=== PATIENT | female | born 1965 | race Caucasian/White ===

== ENCOUNTER 2019-06-20 11:37 | Inpatient (IN) ==
[2019-06-20] MEDS: ZOFRAN ODT PO ONE (12:14)
[2019-06-20] MEDS ORDERED: ZOFRAN ODT ONE (12:17)
[2019-06-20] MEDS ORDERED: PHENERGAN IM ONE (12:25)
[2019-06-20] MEDS ORDERED: ZOFRAN IV ONE (12:40)
[2019-06-20] MEDS ORDERED: NS 1,000 ML IV ONE ×3 (12:42→14:59)
[2019-06-20 12:50] LABS: BASO# 0.03 X1000 (0.0-0.2); BASO% 0.2 % (0.0-0.8); EOS# 0.01 X1000 (0.0-0.7); EOS% 0.1 % (0.0-10.0); HEMATOCRIT 45.8 % (37.0-47.0); HEMOGLOBIN 16.3 g/dL (12.0-16.0); IMM GRAN# 0.07 X1000 (0.0-0.04); IMM GRAN% 0.4 % (0.0-0.5); LYMPH# 1.49 X1000 (1.2-3.4); LYMPH% 9.2 % (20.5-51.1); MCH 31.1 PG (27-31); MCHC 35.6 g/dL (33-37); MCV 87.4 FL (81-99); MONO# 0.88 X1000 (0.11-0.59); MONO% 5.4 % (1.7-9.3); MPV 11.4 FL (7.4-10.4); NEUT# 13.71 X1000 (1.4-6.5); NEUT% 84.7 % (42.2-75.2); PLT 209 X1000 (130-400); RBC 5.24 XMIL (4.2-5.4); RDW 12.6 % (11.5-14.5); WBC 16.19 X1000 (4.8-10.8)
--- NOTE | 2019-06-20 12:50 | EKG Report ---
Test Performed on : 06/20/2019 12:31:16 PM Test Reason : emboli Blood Pressure : / mmHG Vent. Rate : 118 BPM Atrial Rate : 119 BPM P-R Int : 112 ms QRS Dur : 078 ms QT Int : 434 ms P-R-T Axes : 060 076 076 degrees QTc Int : [address] & Marked T wave abnormality, consider inferior ischemia Prolonged QT Abnormal ECG When compared with ECG of 13-FEB-2018 15:47, Vent. rate has increased BY [address] no longer elevated in Inferior leads ST now depressed in Anterior leads T wave inversion now evident in Inferior leads T wave inversion now evident in Anterolateral leads Unconfirmed Result
[2019-06-20 13:27] LABS: AMYLASE 39 U/L (20-200); CK PROFILE 75 U/L (24-173)
--- NOTE | 2019-06-20 13:31 | Diag Imaging Result Doc PS360 ---
CHEST-2 VIEWS - 06/20/2019 INDICATION: cough COMPARISON: 02/13/2018 FINDINGS: The lungs are normally expanded and clear. Heart size and mediastinal contours are normal. No pneumothorax or pleural effusion. IMPRESSION: Negative exam. Electronically signed by Landry Chow 06/20/2019 1:29 PM
--- NOTE | 2019-06-20 13:33 | Diag Imaging Result Doc PS360 ---
ABDOMEN FLAT/UPRIGHT - 06/20/2019 INDICATION: pain COMPARISON: 02/12/2018 FINDINGS: There are surgical clips in the right midabdomen. There is a nonobstructive bowel gas pattern. No free air or abnormal calcifications. IMPRESSION: No acute disease. Electronically signed by Landry Chow 06/20/2019 1:30 PM
[2019-06-20 13:44] LABS: ALBUMIN 4.8 g/dL (3.5-5.0); CALCIUM 9.6 mg/dL (8.8-10.2); POTASSIUM 2.7 mmol/L (3.5-5.1); TOTAL BILIRUBIN 5.1 mg/dL (0.20-1.00); TOTAL PROTEIN 7.7 g/dL (6.3-8.3)
[2019-06-20 14:07] LABS: INR 1.03
[2019-06-20 14:08] LABS: PTT 32.3 Seconds (22.3-41.8)
[2019-06-20 14:11] LABS: BE 8.7 mmoll (-3.0-3.0); BLOOD TYPE ARTERIAL; HCO3-(ACT) 31.6 mmoll (20.0-26.0); METHB 1.5 % (0.0-1.5); O2(CT) 20.2 mL/dL (15.0-23.0); O2HB 94.1 % (95.0-99.0); PCO2(98.6) 25 mmHg (35-45); PO2(98.6) 100 mmHg (60-100); SAMPLE BLOOD; SAO2 98.9 % (95.0-100.0); THB 15.2 g/dL (11.5-17.4)
[2019-06-20 14:15] LABS: MODALITY ROOM AIR
[2019-06-20 14:16] LABS: ALLEN TEST YES; pH(98.6) 7.66 (7.35-7.45)
[2019-06-20] MEDS ORDERED: COMPAZINE IV ONE (14:28)
[2019-06-20 14:44] LABS: URINE SOURCE CLEAN CATCH
[2019-06-20 14:52] LABS: BILIRUBIN URINE SMALL (NEGATIVE); BLOOD URINE SMALL (NEGATIVE); COLOR YELLOW; GLUCOSE URINE NEGATIVE (NEGATIVE); KETONE URINE TRACE mg/dL (NEGATIVE); LEUKOCYTES URINE NEGATIVE (NEGATIVE); NITRITE URINE NEGATIVE (NEGATIVE); PROTEIN URINE 70 mg/dL (NEGATIVE); SP GRAVITY URINE 1.026; TURBIDITY URINE HAZY (CLEAR); UROBILINOGEN URINE 4 mg/dL (NORMAL)
[2019-06-20 14:53] LABS: UR EPITHELIAL CELLS >10 /HPF (<10); URINE BACTERIA 1+ /HPF; URINE RBC <10 /HPF (<10); URINE WBC <10 /HPF (<10)
[2019-06-20 15:57] LABS: UR AMPHETAMINES QUAL NONE DETECTED (NONE DETECT); UR BARBITUATES QUAL NONE DETECTED (NONE DETECT); UR BENZODIAZEPIN QUAL PRESUMPTIVE POSITIVE (NONE DETECT)
[2019-06-20 15:58] LABS: UR CANNABINOIDS QUAL PRESUMPTIVE POSITIVE (NONE DETECT); UR COCAINE QUAL NONE DETECTED (NONE DETECT); UR METHADONE QUAL NONE DETECTED (NONE DETECT); UR METHAMPHETAMINE QUAL NONE DETECTED (NONE DETECT); UR OPIATES QUAL PRESUMPTIVE POSITIVE (NONE DETECT); UR OXYCODONE QUAL NONE DETECTED (NONE DETECT); UR PCP QUAL NONE DETECTED (NONE DETECT); UR PROPOXYPHENE QUAL NONE DETECTED (NONE DETECT); UR TCA QUAL PRESUMPTIVE POSITIVE (NONE DETECT)
[2019-06-20] MEDS ORDERED: ZOSYN 3.375 GM in NS 50 ML IV ONE (16:15)
[2019-06-20] MEDS ORDERED: DEMEROL IV ONE (16:17)
--- NOTE | 2019-06-20 17:18 | PROVIDER DOCUMENTATION ---
This chart was entered by Penelope Alexander Scribe, acting as scribe for Santy Baron MD. HPI-General Adult - General Chief Complaint: Fall Stated Complaint: N / V / FALL Time Seen by Provider: 06/20/19 12:00 Source: patient Allergies/Adverse Reactions: Patient Allergies Allergy/AdvReac Type Severity Reaction Status Date / Time iodine Allergy RASH Verified 02/17/18 08:33 shellfish derived Allergy ANAPHYLAXIS Verified 02/17/18 08:33 aspirin AdvReac Unknown Verified 02/17/18 08:33 Home Medications: Home Medication List Medication Instructions Recorded Confirmed Last Taken Type Ondansetron Odt [Zofran Odt] 8 mg PO Q8H PRN PRN #20 tab 05/27/17 02/17/18 1 Week Ago Rx ~02/10/18 Paroxetine HCl 40 mg PO DAILY 05/27/17 02/17/18 02/16/18 16:00 History Trazodone HCl 200 mg PO HS 05/27/17 02/17/18 02/16/18 21:00 History Buspirone [Buspar] 15 mg PO DAILY 06/26/17 02/17/18 02/16/18 16:00 History Lipase/Protease/Amylase [Pancreaze 2 cap PO TID 02/13/18 02/17/18 02/16/18 16:[address] Tang,200 Unit Cap] Polyethylene Glycol 3350 [Miralax] 17 gm PO DAILY 02/13/18 02/17/18 1 Week Ago History ~02/10/18 Docusate Sodium [Colace] 100 mg PO BID #20 capsule 02/17/18 Unknown Rx Hydrocodone/Acetaminophen [[place] 1 each PO Q4H PRN PRN #20 tablet 02/17/18 Unknown Rx 10-325 Tablet] Multivitamin/Iron/Folic Acid 1 each PO DAILY #100 tablet 02/17/18 Unknown Rx [Multivitamin with Iron Tablet] Ondansetron [Zofran] 4 mg PO Q4H PRN PRN #20 tablet 02/17/18 Unknown Rx - History of Present Illness -Gen Adult Nature of Presenting Problems: 53 y/o female presents to ED with N/V onset this morning. Pt reports she had an episode of syncope 3 days ago and she fell down a flight of stairs. Pt states she has experienced low back pain, rib pain, and L ankle pain since the fall. Pt is alert and oriented. Location of Pain/Injury: reports: back, lower extremity, other (ribs) Pain Radiation: reports: no radiation Quality of Pain: reports: aching Severity: reports: mild Onset/Duration: reports: 3 days ago, this morning Timing: reports: still present Context/Activities at Onset: reports: other (fall) Modifying Factors: worse with: movement, palpation Associated Symptoms: reports: back/neck pain, joint pain (L ankle), nausea, syncope, vomiting, other (rib pain) Similar Symptoms Previously?: No Recently seen or treated by another doctor?: No Review of Systems - Adult - REVIEW OF SYSTEMS - ADULT Constitutional: denies: chills, fever Eyes: reports: no symptoms reported Ears, Nose, Mouth & Throat: reports: no symptoms reported Cardiovascular: denies: chest pain, palpitations Respiratory: denies: cough, shortness of breath Gastrointestinal: reports: nausea, vomiting. denies: abdominal pain, diarrhea Genitourinary: reports: no symptoms reported Musculoskeletal: reports: back pain (low back), joint pain (L ankle), other (rib pain) Integumentary: reports: no symptoms reported Neurological: reports: syncope. denies: dizziness/vertigo, seizure Psychiatric: reports: no symptoms reported Endocrine: reports: no symptoms reported Hematologic/Lymphatic: reports: no symptoms reported Allergic/Immunologic: reports: no symptoms reported All Other Systems: Reviewed and Negative Past History - Adult - PAST MEDICAL HISTORY-ADULT Review of Records: reports: Old Records Reviewed, Nursing Assessment Review, Medications Reviewed Major Childhood Illnesses: reports: denies history Cardiovascular: reports: HTN Respiratory: reports: asthma Gastrointestinal: reports: pancreatitis, other (intractable abd pain) Obstetrical/Gynecological: reports: denies history Genitourinary: reports: denies history Musculoskeletal: reports: denies history Neurological: reports: denies history Psychiatric: reports: anxiety, depression Endocrine/Immune: reports: denies history Other Conditions: reports: denies history - PRIOR SURGERIES/PROCEDURES Surgical/Procedure History: reports: appendectomy, cholecystectomy, hysterectomy , other (brain surgery, pancreas, ectopic ) - IMMUNIZATION STATUS Childhood Immunizations: See Nurse Assessment Flu Vaccine: See Nurse Assessment - FAMILY HISTORY Family History: reviewed, not pertinent - SOCIAL HISTORY Smoking: less than 1 pack/day Provider spent 3-5 mins advising pt. on dangers of tobacco.: Discussed manners to quit use, and f/u contacts for add'l counseling. Substance Use: marijuana Alcohol Use Frequency: occasionally Living Situation: family Physical Exam-General - PHYSICAL EXAM-ADULT Initial Vital Signs Reviewed: Yes - CONSTITUTIONAL General Appearance: alert, mild distress - EYES Eyes: PERRL/EOMI, pink conjunctivae - HEAD, EARS, NOSE, MOUTH & THROAT HENMT: normocephalic/atraumatic, moist mucous membranes, normal ENT inspection - NECK Neck: non-tender, full range of motion - RESPIRATORY Respiratory: chest non-tender, lungs clear, normal breath sounds - CARDIOVASCULAR Cardiovascular: normal peripheral pulses, regular rate, rhythm - GASTROINTESTINAL (ABDOMEN) Abdominal Exam: normal bowel sounds, non tender, soft - MUSCULOSKELETAL Back Exam: normal inspection, no CVA tenderness, no vertebral tenderness, other (paraspinous muscle tenderness) Extremity: normal range of motion, non-tender, normal gait - SKIN Integumentary: normal color, warm/dry, ecchymosis (L lateral lower leg) - NEUROLOGIC Neurologic: international marketing intern II-XII nml as tested, grossly normal, no motor/sensory deficits - PSYCHIATRIC Psych/Mental Status: normal mood/affect, normal thought content, normal thought process, oriented x 3 Progress - PLAN OF CARE/RESULTS Progress/Plan/Lab Results: Vital Signs - 8 hr 06/20/19 11:41 Temperature 98 F Pulse Rate 130 H Respiratory Rate 20 Blood Pressure 135/95 O2 Sat by Pulse Oximetry 99 Orders Category Date Time Status ABDOMEN FLAT/UPRIGHT [RAD] Stat Exams 06/20/19 12:18 Ordered CHEST-2 VIEWS [RAD] Stat Exams 06/20/19 12:18 Ordered AMYLASE [CHEM] Stat Lab 06/20/19 12:16 Ordered CBC WITH DIFF [HEME] Stat Lab 06/20/19 12:15 Ordered CK PROFILE [SP CHEM] Stat Lab 06/20/19 12:16 Ordered COMPREHENSIVE METABOLIC PANEL [CHEM] Stat Lab 06/20/19 12:15 Ordered LIPASE [CHEM] Stat Lab 06/20/19 12:16 Uncollected TROPONIN T Stat Lab 06/20/19 12:16 Ordered Ondansetron Odt [Zofran Odt] Med 06/20/19 12:17 Discontinued 4 mg .ROUTE .STK-MED ONE Ondansetron Odt [Zofran Odt] Med 06/20/19 12:14 Discontinued 8 mg PO NOW ONE EKG [EKG] Routine Ther 06/20/19 12:17 Ordered Result Diagrams: 06/20/19 12:35 06/20/19 12:35 - EKG 1 Time of EKG reading by physician:: 12:31 EKG Read and Signed by:: Santy Baron EKG Interpretation (*Must complete 3 of following elements*): Abnormal Rate: 118 Rhythm: Sinus tach [place]: normal QRS: normal ND Interval: prolonged ST Wave: non-specific ST changes (consider inferior ischemia) - XRAY 1 XRAY Study: Abdomen Impression: See EMR Report ([facility] - [address], [place] [address] [facility] - [address] [place] [address] Department of Imaging Patient: ALEXANDRE MCLEOD Date: 06/20/19MR#: [id number] : 1965ADM Status: [facility]#: [id number] Age/Sex: 53/FRoom/Bed: Loc: P.ED Ordering Physician: Santy Baron MD Family Physician: None,PCP Reason for Procedure: pain Signed ABDOMEN FLAT/UPRIGHT - 06/20/2019 INDICATION: pain COMPARISON: 02/12/2018 FINDINGS: There are surgical clips in the right midabdomen. There is a nonobstructive bowel gas pattern. No free air or abnormal calcifications. IMPRESSION: No acute disease. Electronically signed by Landry Chow 06/20/2019 1:30 PM 06/20/19 1330 Interpreting Physician: Landry Chow MD Dictated Date/Time: 06/20/19 1330 cc: Santy Baron MD; None,PCP) 2 XRAY Study: Chest Impression: See EMR Report ([facility] - [address], [address], [place] [address] [address] [id number] [place] [address] Department of Imaging Patient: ALEXANDRE MCLEOD Date: 06/20/19MR#: [id number] : 1965ADM Status: REG ERAcct#: [id number] Age/Sex: 53/FRoom/Bed: Loc: P.ED Ordering Physician: Santy Baron MD Family Physician: None,PCP Reason for Procedure: cough ____ Signed CHEST-2 VIEWS - 06/20/2019 INDICATION: cough COMPARISON: 02/13/2018 FINDINGS: The lungs are normally expanded and clear. Heart size and mediastinal contours are normal. No pneumothorax or pleural effusion. IMPRESSION: Negative exam. Electronically signed by Landry Chow 06/20/2019 1:29 PM 06/20/19 1329 Interpreting Physician: Landry Chow MD Dictated Date/Time: 06/20/19 1328 cc: Santy Baron MD; None,PCP) - CT/MRI 1 CT Study: Abdomen, Pelvis Impression: See EMR Report ([facility] - [address], [address], [place] [address] [place] [id number] Department of Imaging Patient: ALEXANDRE MCLEOD Date: 06/20/19MR#: [id number] : 1965ADM Status: REG ERAcct#: [id number] Age/Sex: 53/FRoom/Bed: Loc: P.ED Ordering Physician: Santy Baron MD Family Physician: None,PCP Reason for Procedure: pain Signed CT ABDOMEN/PELVIS W/O CONTRAST - 06/20/2019 INDICATION: pain COMPARISON: 09/18/2017 FINDINGS: The lung bases are clear and the heart size is normal. There is severe diffuse fatty change of the liver. There is significant chronic pancreatitis with severe calcification of the pancreas. There is some slight hazy peripancreatic edema. Other abdominal organs appear normal. No drainable fluid collections. No bowel obstruction or inflammation. Uterus is absent. Urinary bladder and rectum are normal. There are moderate degenerative changes of the spine. No acute or suspicious bony lesion. IMPRESSION: 1. Probable acute on chronic pancreatitis. 2. Severe hepatic steatosis. Worsened since prior. This exam was performed using automated exposure control, adjustment of mA or kV according to patient size, and/or use of iterative reconstruction technique Electronically signed by Landry Chow 06/20/2019 5:26 PM 06/20/19 1726 Interpreting Physician: Landry Chow MD Dictated Date/Time: 06/20/19 172 cc: Santy Baron MD; None,PCP) - CONSULTS/PCP/HOSPITALIST Notification #1 *Consult/PCP/Hospitalist*: Dr. Lieberman Time Discussed: 16:02 Reason/Comments: pancreatitis Consult Disposition: Admit Departure - Departure Date of Disposition Decision: 06/20/19 Time of Disposition Decision: 17:39 DIAGNOSIS: Tobacco use Chronic pancreatitis Qualifiers: Pancreatitis type: unspecified pancreatitis type Qualified Code(s): K86.1 - Other chronic pancreatitis Disposition: ADMITTED INPATIENT 09 Certified Medical Emergency: Emergent Condition: Stable Referrals and Follow-Ups: None,PCP [Primary Care Provider] - Discharge Education: Steps to Quit Smoking, [id number] - Critical Care Note This patient required my direct & personal management of CC.: No Attestation - Physician/ DON Attestation Patient care was provided by Advanced Practice Provider:: No The physician spent face to face time with patient:: Yes Advanced Practice Provider documentation review:: Supervising physician onsite and consulted in the evaluation and care of this patient. The physician did have a face to face encounter with the patient. This chart was documented by the indicated scribe, (Penelope Alexander, Tor) and accurately reflects the services I performed and decisions made by me, Santy Baron MD, as attested by the provider's signature.
--- NOTE | 2019-06-20 17:28 | Diag Imaging Result Doc PS360 ---
CT ABDOMEN/PELVIS W/O CONTRAST - 06/20/2019 INDICATION: pain COMPARISON: 09/18/2017 FINDINGS: The lung bases are clear and the heart size is normal. There is severe diffuse fatty change of the liver. There is significant chronic pancreatitis with severe calcification of the pancreas. There is some slight hazy peripancreatic edema. Other abdominal organs appear normal. No drainable fluid collections. No bowel obstruction or inflammation. Uterus is absent. Urinary bladder and rectum are normal. There are moderate degenerative changes of the spine. No acute or suspicious bony lesion. IMPRESSION: 1. Probable acute on chronic pancreatitis. 2. Severe hepatic steatosis. Worsened since prior. This exam was performed using automated exposure control, adjustment of mA or kV according to patient size, and/or use of iterative reconstruction technique Electronically signed by Landry Chow 06/20/2019 5:26 PM
[2019-06-20] MEDS ORDERED: NS + KCL 20 MEQ 1,000 ML IV ONE (18:40)
--- NOTE | 2019-06-20 18:56 | HISTORY AND PHYSICAL ---
CHIEF COMPLAINT: Abdominal pain. HISTORY OF PRESENT ILLNESS: The patient is a 53-year-old female who has a known history of chronic pancreatitis. The patient notes that she was in the hospital in [place] 4 months ago with pancreatitis at that time as well. She does not have a gallbladder. States she has not been drinking alcohol; in fact, notes that she avoids any alcohol-containing products, including mouthwashes. Notes that she has not been eating well. She has had increased abdominal pain. States this is very similar to her previous episodes of pancreatitis. Of note, she was told when she was in the hospital this last time that she was starting to have some liver issues as well as kidney issues and should, according to her, consider hospice care. ALLERGIES: Iodine, shellfish, and aspirin. MEDICATIONS: Zofran, Paxil, trazodone, and BuSpar. REVIEW OF SYSTEMS: The patient notes she has nausea, vomiting, abdominal pain, epigastric abdominal pain, low back pain, left ankle pain, and chronic rib pain. Denies any fevers or chills. Does have a mild cough. Denies chest pain or palpitation. Denies any dysuria, frequency, constipation, melena, or hematochezia. Denies diarrhea or dysuria. Does not check her weight on any regular basis. Does check her blood pressure at home; notes that she recently checked it and it was normal although could not specify what normal is. PAST MEDICAL HISTORY: Hypertension, asthma, and pancreatitis chronic. SURGICAL HISTORY: She has had an appendectomy, cholecystectomy, and hysterectomy. She has had brain surgery, she had surgery on her pancreas assuming for a cyst, and some ectopic . FAMILY HISTORY: Noncontributory. SOCIAL HISTORY: Continues to smoke a pack a day. Does use marijuana. Denies alcohol. PHYSICAL EXAMINATION: VITAL SIGNS: Reviewed. Temperature 98 degrees, pulse 130, respiratory 20, BP 135/95 to 169/106. GENERAL: The patient is awake and alert. She is lying in the bed. She is in mild distress due to pain. She is in no respiratory distress. HEENT: Normocephalic. NECK: Supple. CARDIOVASCULAR: Regular rate. CHEST: Clear and nonlabored. No wheezing. ABDOMEN: Soft. Diffusely tender in the upper quadrants, mainly in the epigastric region to any palpation. EXTREMITIES: Moves all extremities. SKIN: Warm and dry. No rash. She does have bruising over her left lower extremity. NEUROLOGIC: She is awake, alert, and oriented. ASSESSMENT: 1. Leukocytosis. White count of 16.2. 2. Hypokalemia. Potassium 2.7. 3. Renal failure. Unsure if this is acute or chronic. 4. Hyperglycemia. 5. Acute on chronic pancreatitis. 6. Severe hepatic steatosis worse since her previous exam. 7. Chronic tobacco abuse. 8. Abnormal urine drug screen positive for opiates and tricyclics, benzodiazepines, and cannabinoids. 9. Mild volume depletion. 10. Elevated carboxyhemoglobin present secondary to tobacco use. PLAN: 1. We are going to admit patient to the hospital. 2. Keep her NPO. 3. Pain control. 4. IV fluids. 5. We will restart her home medications once they have been verified. 6. We will place her on hydralazine as needed for her blood pressures. 7. We will follow. 8. We will transfer her to [facility] and ask GI for assistance. cc: Evangelist Lieberman MD
[2019-06-20] MEDS: DEMEROL IV PRN (19:53)
[2019-06-20] MEDS: ZYVOX 600 MG/D5W 600 MG/300 ML IVPB IV SCH (20:02)
[2019-06-20] MEDS: PEPCID IV SCH (20:03)
[2019-06-20] MEDS: ZOFRAN IV PRN (20:03)
[2019-06-20] MEDS: ZOSYN 2.25 GM in NS 50 ML IV SCH (23:57)
[2019-06-21] MEDS: ZOFRAN IV PRN ×2 (00:40→04:37)
[2019-06-21] MEDS: DEMEROL IV PRN ×6 (00:41→22:09)
[2019-06-21] MEDS: APRESOLINE IV PRN ×2 (04:36→23:39)
[2019-06-21] MEDS: ZOSYN 2.25 GM in NS 50 ML IV SCH ×2 (06:24→11:59)
[2019-06-21 07:09] LABS: BASO# 0.02 X1000 (0.0-0.2); BASO% 0.2 % (0.0-0.8); EOS# 0.11 X1000 (0.0-0.7); EOS% 1.1 % (0.0-10.0); HEMATOCRIT 37.6 % (37.0-47.0); HEMOGLOBIN 13.1 g/dL (12.0-16.0); IMM GRAN# 0.03 X1000 (0.0-0.04); IMM GRAN% 0.3 % (0.0-0.5); LYMPH% 15.4 % (20.5-51.1); MCH 31.6 PG (27-31); MCHC 34.8 g/dL (33-37); MCV 90.6 FL (81-99); MONO# 0.67 X1000 (0.11-0.59); MONO% 6.4 % (1.7-9.3); MPV 11.4 FL (7.4-10.4); NEUT# 7.99 X1000 (1.4-6.5); NEUT% 76.6 % (42.2-75.2); PLT 118 X1000 (130-400); RBC 4.15 XMIL (4.2-5.4); RDW 12.7 % (11.5-14.5); WBC 10.42 X1000 (4.8-10.8)
[2019-06-21 07:33] LABS: ALB/GLOB RATIO 1.2; ALBUMIN 3.3 g/dL (3.5-5.0); CALCIUM 8.8 mg/dL (8.8-10.2); CREATININE 1.6 mg/dL (0.5-0.9); MAGNESIUM 1.7 mg/dL (1.5-2.7); TOTAL BILIRUBIN 4.45 mg/dL (0.20-1.00); TOTAL PROTEIN 6.1 g/dL (6.3-8.3)
[2019-06-21 07:50] LABS: POTASSIUM 2.5 mmol/L (3.5-5.1)
[2019-06-21] MEDS: ZYVOX 600 MG/D5W 600 MG/300 ML IVPB IV SCH (08:36)
[2019-06-21] MEDS: PEPCID IV SCH (08:46)
--- NOTE | 2019-06-21 16:30 | PROGRESS NOTE ---
DATE: 06/21/2019 Today Ms. Lim refers to be doing well. Still has some baseline residual abdominal discomfort but no vomiting. She has been tolerating sips of water and ice chips. OBJECTIVE: Vital signs: Blood pressure is 163/96, pulse 84, respirations 16, temperature 97.8 degrees. General: Ms. Lim is a 53-year-old female. She is in bed in no distress. HEENT: Mucosa is pink and moist. Anicteric. Acyanotic. Neck: Supple. Chest: Good air entry bilaterally. There were no crepitations, no rhonchi. Cardiovascular: Regular rate and rhythm. GI: Abdomen is soft. There is a midline surgical scar. Bowel sounds present but slightly reduced. There is mild tenderness palpating the upper abdomen, more so to the mid and right upper quadrants. There is guarding, but there is no rebound tenderness. Extremities: No pedal edema. ORNITHOLOGY TEACHER: Patient is awake, alert, oriented. No focal deficit. LABORATORY DATA: Has been reviewed. WBC is down to 10.42, hemoglobin is 13.1, platelet count of 118. Chemistry is also reviewed. Potassium is 2.5. Creatinine is down to 1.6. Lactate has normalized. So far, urine culture negative. Blood cultures have been pending. PATIENT MEDICATIONS: Have all been reviewed. No changes. IMAGING STUDIES: An initial KUB showed no acute disease. A chest x-ray was negative. A CT scan of the abdomen and pelvis showed probably acute on chronic pancreatitis, severe pancreatic steatosis. ASSESSMENT: 1. Abdominal pain on admission secondary to acute on chronic pancreatitis. 2. Severe hepatic steatosis. 3. Previous history of alcohol use and abuse, presumably the cause of the chronic pancreatitis and the liver steatosis. 4. Clinical volume depletion with acute kidney injury. Creatinine is down to 1.6. We are going to continue with the fluid resuscitation. 5. Electrolyte abnormality including hypokalemia. We will continue to replace and follow accordingly. 6. Elevated white cell count, most likely due to reactive leukocytosis. So far, chest x-ray does not show any pneumonia. Urine culture is negative. We will be pending the blood culture. If that comes negative, we will discontinue the antibiotics. 7. Polysubstance use. The patient urine toxicology positive for opioids, tricyclics, benzodiazepines, and cannabinoids. cc: Ricardo Flores MD
[2019-06-21] MEDS: POTASSIUM CHLORIDE 20 MEQ/SWI 20 MEQ/100 ML IVPB IV SCH ×2 (16:44→19:46)
[2019-06-21] MEDS: CREON PO SCH (16:45)
[2019-06-21] MEDS ORDERED: NS 500 ML ONE (16:46)
[2019-06-21] MEDS: LR 1,000 ML IV SCH ×2 (19:41→22:08)
--- NOTE | 2019-06-21 20:19 | Diag Imaging Result Doc PS360 ---
US ABDOMEN-COMPLETE - 06/21/2019 INDICATION: evaluate for cirrhosis, portal hypertension COMPARISON: CT from 06/20/2019 FINDINGS: There is severe heterogeneous fatty change of the liver stable from the prior CT. The gallbladder is absent. No biliary dilation. Common bile duct measures 3 mm. The pancreas is obscured. The spleen is slightly enlarged. Spleen size is 13.1 x 4.97 m. Both kidneys are normal. Aorta, IVC, and main portal vein are patent. No free fluid. IMPRESSION: 1. Severe, heterogeneous fatty change of the liver. 2. Mild splenomegaly. Electronically signed by Landry Chow 06/21/2019 8:17 PM
[2019-06-22] MEDS: DEMEROL IV PRN ×5 (06:25→22:37)
[2019-06-22] MEDS: ZOFRAN IV PRN ×2 (06:25→10:31)
[2019-06-22] MEDS: LR 1,000 ML IV SCH ×3 (06:25→23:44)
[2019-06-22 06:40] LABS: HEMATOCRIT 38.3 % (37.0-47.0); HEMOGLOBIN 13.3 g/dL (12.0-16.0); MCH 31.7 PG (27-31); MCHC 34.7 g/dL (33-37); MCV 91.4 FL (81-99); RBC 4.19 XMIL (4.2-5.4); WBC 7.59 X1000 (4.8-10.8)
[2019-06-22 07:01] LABS: ALB/GLOB RATIO 1.1; ALBUMIN 3.1 g/dL (3.5-5.0); CALCIUM 8.6 mg/dL (8.8-10.2); CREATININE 1.1 mg/dL (0.5-0.9); POTASSIUM 2.9 mmol/L (3.5-5.1); TOTAL BILIRUBIN 2.44 mg/dL (0.20-1.00); TOTAL PROTEIN 5.8 g/dL (6.3-8.3)
[2019-06-22] MEDS: POTASSIUM CHLORIDE 20 MEQ/SWI 20 MEQ/100 ML IVPB IV SCH ×2 (09:28→13:12)
--- NOTE | 2019-06-22 09:31 | GASTROENTEROLOGY CONSULTATION ---
DATE: 06/21/2019 REASON FOR CONSULTATION: Zredv-bu-xtewrsh pancreatitis. HISTORY OF PRESENT ILLNESS: Ms. Lim is a 53-year-old woman with past medical history of hypotension, asthma, chronic pancreatitis, tobacco abuse, anxiety, depression, who presents with 2 days of intractable nausea and vomiting and epigastric pain typical of her prior presentations and clkrg-cf-rghieqt pancreatitis. The patient reports decreased p.o. intake and pain baseline light- colored stools 2 to 3 times a day unchanged from prior and about a 20 pound weight loss over 2 weeks. In the past when she has presented with pancreatitis, her symptoms usually improve with supportive care including bowel rest, IV fluids, pain medications and antiemetics. She does continue to smoke about a quarter of a pack of cigarettes a day and had a wine cooler about a month ago; however, she denies regular alcohol use. She is status post cholecystectomy knowing In the past her pancreatitis has been attributed to alcoholism. No rectal bleeding or hematemesis. She has been off all medications because of her recent relocation to [place]. REVIEW OF SYSTEMS: As per HPI. Otherwise 12-point review of systems is negative. PAST MEDICAL HISTORY: As per HPI. PAST SURGICAL HISTORY: Includes cholecystectomy, hernia repair, appendectomy, tubal ligation, partial hysterectomy, partial pancreatectomy. SOCIAL HISTORY: She smokes about a quarter of a pack of tobacco a day. Previously she smoked up to 2 packs per day for 32 years. She has a prior history of drinking heavily up until about 2005. Prior to that she was drinking copious amount beers every weekend. FAMILY HISTORY: No family history of GI malignancies or hepatitis. MEDICATIONS: None. ALLERGIES: IODINE, SHELLFISH, AND ASPIRIN. PHYSICAL EXAMINATION: Vital Signs: Temperature 97.8, heart rate 84, respiratory rate 16, blood pressure 163/96, O2 saturation 91% on room air. General: The patient is awake, alert, and oriented in no acute distress. She is thin. HEENT: Sclerae are anicteric. Moist mucous membranes. Extraocular movements intact. Neck is supple with no JVD or lymphadenopathy. Cardiac: Regular rate and rhythm. No murmurs. Lungs: Clear to auscultation bilaterally, no wheezing. Abdomen: Soft, surgical scars are noted, some voluntary guarding throughout, tenderness to palpation anteriorly touch, bowel sounds are present. Extremities: No clubbing, cyanosis, or edema. Neurologic: Nonfocal. LABORATORY DATA: White count 10.4 from 16.1 yesterday, hemoglobin of 13.1 from 16.3, platelets of 118 from 209. INR 1.03. Yesterday pH 7.66, pCO2 of 25, and pO2 of 100. Sodium 137, potassium 2.5 from 2.7 yesterday, chloride of 93, bicarbonate 18, BUN of 22, creatinine 1.6 from 2 yesterday, glucose of 133 from 251. Total bilirubin of 4.45 from 4.5. AST 26, ALT 21, alkaline phosphatase 164, total protein of 6.1, albumin 3.3, lipase of 9, lactate 1.1. UA showed protein, ketones, small amount of blood and bilirubin. UA positive for opiates, tricyclics and cannabinoids. IMAGING: Abdominal x-ray shows no acute disease. Chest x-ray negative exam. X-ray of the abdomen and pelvis without contrast shows probable csurj-hi-myhajdr pancreatitis, with severe calcification of the pancreas, pancreatic edema w/o fluid collection, there is very diffuse fatty stranding of the liver worsened since prior. Urine culture is negative. ASSESSMENT AND PLAN: Ms. Stacy Lim is a 53-year-old woman with past medical history of tobacco abuse, xniiv-[id number] pancreatitis status post partial pancreatectomy, remote history of alcoholism, substance abuse, and reported asthma who presents with intractable nausea and vomiting and epigastric pain in the setting of recurrent vtkpw-nx-wnfgfam pancreatitis. Her laboratories showed signs of volume depletion including heme concentration improved with intravenous fluids, acute kidney injury, hypokalemia, and UA positive for opiates, TCA, cannabinoids, although the patient denies being on medications recently. Imaging shows rdold-ot-kinacwc pancreatitis, as well as severe hepatic steatosis. This along with her abnormal liver function tests and apparent thrombocytopenia raises the concern for possible cirrhosis of the liver. She is currently on antibiotics with linezolid and Zosyn which they can discontinue. 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 We will also check an acute hepatitis panel in the setting of abnormal LFTs and check an abdominal ultrasound to look for signs of portal hypertension. # Acute on chronic pancreatitis # Abnormal LFTs # ETOH cirrhosis # DEMETRIUS # N/V # Tobacco abuse # Thrombocytopenia # Substance abuse Thank you for this consult. We will follow with you. Please call with any questions or concerns. NAVI
[2019-06-22] MEDS: CREON PO SCH ×3 (09:56→17:26)
[2019-06-22 10:06] LABS: HEPATITIS PROFILE ACUTE SEE COMMENTS
--- NOTE | 2019-06-22 12:15 | GASTROENTEROLOGY PROGRESS NOTE ---
DATE: 06/22/2019 SUBJECTIVE: Ms. Lim is a 53-year-old female resting in bed. The patient was angry and did not want to respond to any of the questions. She did complain of having abdominal pain on the left side and feeling nauseated. The patient has denied having any bowel movements today. OBJECTIVE: Vital Signs: Temperature 98.3 degrees, pulse 92, respirations 17, blood pressure 195/87, oxygen saturation 96% on room air. The patient's weight is 123 pounds. General: She is alert, oriented x3. No acute distress. HEENT: Pale conjunctivae, no icterus. PERRL. Neck: Supple. Lungs: Clear to auscultation in the anterior reyes. Cardiovascular: Regular rate. The patient is tachycardic. Abdomen: Abdomen is soft, tender on the left quadrants. Previous surgical scar is noted. Active bowel sounds heard in all 4 quadrants. Extremities: No clubbing, no cyanosis, no edema. Pedal pulses 2+ present bilaterally. Neurologic: She is alert, oriented x3. LABORATORY DATA: WBCs of 7.59, RBC 4.19, hemoglobin 13.3, hematocrit is 38.3, platelet count is 120. Sodium 135, potassium 2.9, chloride 97, carbon dioxide is 27, anion gap 13. BUN 14, creatinine 1.1, glucose 115, calcium 8.6, total bilirubin 2.44. AST 26, ALT 18, alkaline phosphatase is 145, albumin is 3.1. The patient's toxicology report has shown that she is presumptive positive for urine opioids. tricyclics, benzodiazepines and cannabinoids. Her hepatitis panel is nonreactive. IMAGING STUDIES: The patient's abdominal ultrasound showed that she has severe heterogenous fatty changes of the liver and mild splenomegaly. Abdomen and pelvis CT on 06/20/2019 showed probable acute on chronic pancreatitis, severe hepatic steatosis IMPRESSION AND PLAN: Acute on chronic pancreatitis Abdominal pain Nausea and vomiting Abnormal LFT's Hypokalemia Anxiety and depression History of alcohol abuse History of substance abuse Current smoker PLAN: Ms. Lim is a 53 year old female with the history of pancreatitis. anxiety and depression, current smoker and history of alcohol and substance abuse. GI is following her for her pancreatitis. Patient is currently on IV fluid lactated Ringer at 100 mL/hour. She is receiving potassium chloride IV 20 mEq at 50 mL/hour, total of 2 bags for hypokalemia. The patient is receiving Creon 6000 units p.o. three times a day for her pancreatitis. For her nausea and vomiting, she is on Zofran 4 mg IV, and for her pain she is on Demerol 25 mg IV every 4 hours as needed. Patient has been counselled on smoking cessation and not consuming drugs and alcohol. We will continue to provide supportive care to the patient and follow the plan of care per PCP. This plan was discussed with Dr. Whitman. Please call us for any further questions or concerns. Dictated by ANDRIY Goff for Santy Whitman MD Physician Attestation I have seen and examined the patient. I have discussed and reviewed the note by Sandra ASHRAF and agree with findings and plan as documented. MTDD
[2019-06-22] MEDS ORDERED: DILAUDID IV PRN (13:19)
[2019-06-22] MEDS: PHENERGAN IV PRN ×2 (13:47→17:23)
--- NOTE | 2019-06-22 14:02 | PROGRESS NOTE ---
DATE: 06/22/2019 SUBJECTIVE: This morning Ms. Lim refers to be hurting more than even when she came in. She threw up about 2 times while I was there. Her parents were at the bedside at the time of the encounter Ms. Lim refers that for the last 24 hours she has just been pain however yesterday when I saw her she did say that she was doing a lot better and that she thought her pain was under control. We have current vitals blood pressure is 183/99, pulse of 104, respiration is 22, temperature 97.8 degrees, patient is saturating 95% on room air. General: Ms. Lim 53-year-old female she is in bed no cardiopulmonary distress. Mucosa is pink and moist. Anicteric, acyanotic. Neck: Supple. Chest: Good entry bilateral, did not hear any crackles or crepitations. Cardiovascular: Regular rate and rhythm. GI: Abdomen is soft. There is a midline surgical scar. Bowel sounds are present slightly hypoactive. There is minimum tenderness in the epigastrium and to the right upper quadrant. There is no rebound, no guarding. Extremities: No pedal edema. LIVING SKILLS ADVISOR: Patient is awake, alert and oriented. LABORATORY DATA: CBC is within normal range. Platelet count is about 120,000 today. Chemistry is also reviewed, K: 2.9, sodium is 135, creatinine is down to 1.0. Hepatitis panel is negative. Ultrasound shows severe intertriginous fatty change of the liver and mild splenomegaly. ASSESSMENT: 1. Abdominal pain on admission presumed to be due to acute on chronic pancreatitis. 2. Severe hepatic steatosis with splenomegaly, borderline thrombocytopenia, all concerning for cirrhosis of the liver. 3. Previous history of alcohol use and abuse, presumably the cause of the chronic pancreatitis and liver steatosis. 4. Clinical volume depletion with acute kidney injury on admission, creatinine is down to 1.1. 5. Electrolyte abnormality including hypokalemia, will continue to replace and follow accordingly. 6. Polysubstance abuse. Urine toxicology is positive for opioids, tricyclics, benzodiazepine and cannabinoids. 7. Chronic pain syndrome. Ms Lim denied yesterday that she was on any pain medications however she said any time she is hurting she uses cannabinoids. Her urine drug screen however was positive for opioids and tricyclics as well as benzodiazepine. She is not able to tell me how that came in her urine. At any point, I think we need to be extremely careful with her pain management. This morning she was almost acting out saying she was hurting, parents were at the bedside and at some point she did say we should all stop talking and do something about her pain. For now I have increased her meperidine and will also use Percocet p.r.n. as well if she is able to tolerate p.o. cc: Ricardo Flores MD MTDD
[2019-06-22] MEDS: PERCOCET-5 PO PRN ×2 (16:04→20:07)
[2019-06-22] MEDS: APRESOLINE IV PRN (20:08)
[2019-06-22] MEDS: CATAPRES PO ONE ×2 (22:37→22:40)
[2019-06-22] MEDS ORDERED: PHENERGAN IV ONE (22:50)
[2019-06-22] MEDS ORDERED: SODIUM CHLORIDE 0.9% INJ ONE (22:50)
[2019-06-22] MEDS ORDERED: LABETALOL IV ONE (22:51)
[2019-06-23] MEDS: DEMEROL IV PRN ×6 (04:36→22:18)
[2019-06-23] MEDS: PROTONIX IV SCH ×2 (05:11→22:17)
[2019-06-23 06:39] LABS: HEMATOCRIT 37.8 % (37.0-47.0); MCH 31.7 PG (27-31); MCHC 34.4 g/dL (33-37); MCV 92.2 FL (81-99); MPV 10.8 FL (7.4-10.4); RBC 4.1 XMIL (4.2-5.4); RDW 12.9 % (11.5-14.5); WBC 10.68 X1000 (4.8-10.8)
[2019-06-23 07:06] LABS: ALB/GLOB RATIO 1.2; ALBUMIN 3.3 g/dL (3.5-5.0); C REACTIVE PROT QUANT 44.34 mg/L (0.00-5.00); CALCIUM 8.7 mg/dL (8.8-10.2); POTASSIUM 2.9 mmol/L (3.5-5.1); TOTAL BILIRUBIN 1.83 mg/dL (0.20-1.00)
[2019-06-23] MEDS: ZOFRAN IV PRN ×3 (07:47→18:33)
[2019-06-23] MEDS: APRESOLINE IV PRN ×2 (07:47→12:06)
[2019-06-23] MEDS: LR 1,000 ML IV SCH ×2 (08:43→20:45)
[2019-06-23] MEDS: PHENERGAN IV PRN ×3 (08:43→22:18)
[2019-06-23] MEDS ORDERED: POTASSIUM CHLORIDE 20% LIQUID PO SCH (09:00)
--- NOTE | 2019-06-23 09:09 | PROGRESS NOTE ---
DATE: 06/23/2019 SUBJECTIVE: This is a 53-year-old who came in with abdominal pain on 06/20/2019. She has no primary care physician. She has a known history of chronic pancreatitis. The patient notes she was in the hospital in [place] 4 months ago with pancreatitis at that time. She does not have a gallbladder. States she has not been drinking alcohol. She avoids any alcohol containing products including mouthwashes. Notes that she has not been eating well. She has had increased abdominal pain, and states very similar to previous episodes of pancreatitis. She was told when she was in the hospital the last time she was starting to have some liver issues as well and kidney issues. According to her, consider hospice care. ALLERGIES: Iodine, shellfish, and aspirin. PAST MEDICAL HISTORY: Hypertension, asthma, and pancreatitis, which is chronic. She presented with leukocytosis, hypokalemia, acute kidney injury on top of chronic kidney disease, hyperglycemia, acute on chronic pancreatitis, severe hepatic steatosis, worse since her previous exam according to imaging. Chronic tobacco use. Abnormal urine drug screen positive for opiates, tricyclics, benzodiazepines, and cannabinoids. She had mild volume depletion, elevated carboxyhemoglobin present secondary to tobacco use. She was sleeping when I came in the room. She was easy to arouse. She was immediately upset and said she was hurting, and was not getting enough pain medication. She did not like the food. Her breakfast came in while I was there, and she refused it, and told her to take it away. She did not like any of the food. She wanted to know why she was not getting more pain medicine. She refused to consider physical therapy because she was hurting. Apparently, she is trying to get back to [place], but she is going to stay here until she is better. She is staying with her parents according to her report. OBJECTIVE: Vital Signs: Temperature 98.2 degrees, pulse 108, respirations 20, and blood pressure 207/136. Her blood pressures last several readings, 154/98, 152/91, 56/88, 212/111, and 207/136. Lungs: Clear anterolateral. Cardiovascular: Regular rhythm and rate without murmur or S3. Abdomen: Soft. Skin: Warm and dry. Urine output was 6400 mL. LABORATORY DATA: Labs this morning, white count 88388, hematocrit is 37, and platelet count is 108,000. On presentation, ProTime was 14.0, INR is 1.03, PTT was 32. Sodium 131 today, potassium 2.9, chloride 89, BUN is 12, and creatinine 1.0. Magnesium was 1.7 on the . Transaminases are normal. Bilirubin has come down from 4.45 to 1.83. Creatinine has come down to 1.0. ASSESSMENT/PLAN: 1. Acute on chronic pancreatitis. She takes pancreatic replacement with lipase and protease 6000 units p.o. t.i.d. She is on lactated Ringer's at 100 mL an hour. 2. Apresoline 10 mg IV q.6 hours p.r.n. hypertension. 3. She is getting Demerol 50 mg IV q.4 hours p.r.n. 4. Oxycodone 5 mg p.o. q.4 hours p.r.n. 5. Protonix 40 mg IV q.24 hours. 6. Clonidine. She takes I think as needed blood pressure. 7. I think she got a dose of labetalol as well. ASSESSMENT AND PLAN: 1. Acute on chronic pancreatitis. Continue her pancreatic replacement IV fluids. She is getting Demerol 50 mg q.4 hours. 2. Continue Protonix 40 mg IV q.24 hours. 3. Hypokalemia, need to give her replacement. We will do that p.o., give her 40 mEq twice a day until we get her potassium up, and watch her magnesium level. 4. Chronic kidney disease. Appears that renal function is improved with volume. 5. Apparently, she has had some underlying liver dysfunction. I do not know if this was actual cirrhosis, but by her history, she has had liver issues. Her transaminases are normal. Her INR is within normal limits, and her albumin is 3.3. I offered for her to look at a menu, and try and pick out food that she can tolerate, and see where we need to go from here. cc: Sreedhar Cardona MD
[2019-06-23] MEDS ORDERED: POTASSIUM CHLORIDE 40 MEQ in NS 500 ML IV ONE (12:15)
[2019-06-23] MEDS: CREON PO SCH ×3 (14:27→17:23)
[2019-06-23] MEDS: SODIUM CHLORIDE 0.9% INJ SCH (22:18)
[2019-06-23] MEDS: SODIUM CHLORIDE 0.9% INJ PRN (22:18)
--- NOTE | 2019-06-23 23:43 | PROVIDER PROGRESS NOTE ---
Progress Note S: No acute overnight events. Afebrile. Patient continues to have pain. O: Last Vital Signs Temp 98.6 F 06/24/19 00:00 Pulse 122 H 06/24/19 00:00 Resp 21 06/24/19 00:00 BP 156/107 06/24/19 00:00 Pulse Ox 99 06/24/19 00:00 Height 6 in Weight 123 lb 6 oz GEN: resting comfortably, NAD HEENT: anicteric NECK: supple PULM: normal WOB CV: tachycardia ABD: soft, hypoactive BS, TTP throughout EXT: no cce NEURO: nonfocal LABS: 06/23/19 06/23/19 05:58 05:58 WBC 10.68 Hgb 13.0 Plt Count 108 L Sodium 131 L Potassium 2.9 L Chloride 89 L Carbon Dioxide 25 Anion Gap 17 BUN 12 Creatinine 1.0 H Glucose 136 H Total Bilirubin 1.83 H AST 24 ALT 17 Alkaline Phosphatase 140 H C-Reactive Prot, Quant 44.34 H Total Protein 6.0 L Albumin 3.3 L ASSESSMENT AND PLAN: Ms. Stacy Lim is a 53 year old woman with tobacco abuse, remote history of alcoholism, compensated ETOH cirrhosis, partial pancreatectomy who presents with acute on chronic pancreatitis. She is tachycardic and continues to have pain. Labs show hypokalemia, elevated CRP, improving LFTs, and hyponatremia. Recommend pain control, antiemetics prn, IVFs. No indication for antibiotics at this time. # Acute on chronic pancreatitis # Hypokalemia # Hyponatremia # Probable ETOH cirrhosis, compensated # Thrombocytopenia # DEMETRIUS: improved # Leukocytosis: resolved Will follow with you. Please call with questions.
[2019-06-24] MEDS: ZOFRAN IV PRN (03:38)
[2019-06-24] MEDS: DEMEROL IV PRN ×5 (03:39→20:29)
[2019-06-24] MEDS: LR 1,000 ML IV SCH ×2 (06:14→15:05)
[2019-06-24] MEDS: PERCOCET-5 PO PRN ×3 (06:14→15:02)
[2019-06-24] MEDS: PHENERGAN IV PRN ×4 (08:07→20:30)
--- NOTE | 2019-06-24 09:09 | PROGRESS NOTE ---
DATE: 06/24/2019 SUBJECTIVE: Ms. Lim is feeling a little better. She is coughing quite a bit, it is a loose cough, and I think she feels a little stronger. OBJECTIVE: Vital Signs: Temp is 98.6 degrees, pulse 102, respirations 20, blood pressure 188/120. Her blood pressures have been running a little on the high side, 175 to 212 over 104 to 120. HEENT: Pupils are equal. Neck: No distended neck veins. Lungs: Clear in all lung reyes. Cardiovascular: Regular rhythm and rate without murmur or S3. Abdomen: Soft. Skin: Warm and dry. ASSESSMENT AND PLAN: She has a remote history of alcoholism, compensated ETOH cirrhosis, partial pancreatectomy, who presented with acute on chronic pancreatitis. Continues to complain of pain. I have gone up on the Demerol. She agreed to back down, so we will go down to every 4 hours as needed of Demerol. She still has hydrocodone to use. She presented with hypokalemia, hyponatremia, and that is improved. She had some thrombocytopenia and acute kidney injury on presentation. Her hematocrit 37, hemoglobin 13. Creatinine is 1. Transaminases are okay, so we will see if we can cut down the Demerol. Her plans are to try and go home with her parents. Note that her urine drug screen was positive for opiates and tricyclics and benzodiazepines and cannabinoids. cc: Sreedhar Cardona MD
[2019-06-24 09:34] LABS: BASO# 0.01 X1000 (0.0-0.2); BASO% 0.2 % (0.0-0.8); EOS# 0.02 X1000 (0.0-0.7); EOS% 0.4 % (0.0-10.0); HEMATOCRIT 36.1 % (37.0-47.0); HEMOGLOBIN 12.2 g/dL (12.0-16.0); IMM GRAN# 0.03 X1000 (0.0-0.04); IMM GRAN% 0.6 % (0.0-0.5); LYMPH# 0.75 X1000 (1.2-3.4); LYMPH% 14.1 % (20.5-51.1); MCH 31.1 PG (27-31); MCHC 33.8 g/dL (33-37); MCV 92.1 FL (81-99); MONO# 0.54 X1000 (0.11-0.59); MONO% 10.1 % (1.7-9.3); MPV 10.1 FL (7.4-10.4); NEUT# 3.98 X1000 (1.4-6.5); NEUT% 74.6 % (42.2-75.2); PLT 78 X1000 (130-400); RBC 3.92 XMIL (4.2-5.4); RDW 12.9 % (11.5-14.5); WBC 5.33 X1000 (4.8-10.8)
[2019-06-24 10:10] LABS: ALB/GLOB RATIO 1.1; CALCIUM 8.4 mg/dL (8.8-10.2); CREATININE 1.1 mg/dL (0.5-0.9); POTASSIUM 3.3 mmol/L (3.5-5.1); TOTAL BILIRUBIN 1.75 mg/dL (0.20-1.00); TOTAL PROTEIN 5.7 g/dL (6.3-8.3)
[2019-06-24] MEDS: CREON PO SCH ×3 (10:27→20:42)
[2019-06-24] MEDS: APRESOLINE IV PRN (20:41)
[2019-06-24] MEDS: PROTONIX IV SCH (20:42)
--- NOTE | 2019-06-24 22:56 | PROVIDER PROGRESS NOTE ---
Progress Note S: No acute overnight events. No N/V/F. Patient continues to have 10/10 abdominal pain but is tolerating PO. +BM, nonbloody. O: Last Vital Signs Temp 98.7 F 06/24/19 19:41 Pulse 98 H 06/24/19 19:41 Resp 18 06/24/19 19:41 BP 186/118 06/24/19 19:41 Pulse Ox 98 06/24/19 19:41 Height 6 in Weight 123 lb 6 oz GEN: resting comfortably, NAD HEENT: anicteric NECK: supple PULM: normal WOB CV: tachycardic, no murmurs ABD: soft, increased BS, TTP throughout EXT: no cce NEURO: nonfocal LABS: 06/24/19 06/24/19 09:18 09:18 WBC 5.33 Hgb 12.2 Plt Count 78 L Sodium 132 L Potassium 3.3 L Chloride 92 L Carbon Dioxide 27 BUN 15 Creatinine 1.1 H Glucose 120 H Total Bilirubin 1.75 H AST 26 ALT 15 Alkaline Phosphatase 131 H Total Protein 5.7 L Albumin 3.0 L ASSESSMENT AND PLAN: Ms. Stacy Lim is a 53 year old woman with tobacco abuse, remote history of alcoholism, compensated ETOH cirrhosis, partial pancreatectomy who presented with acute on chronic pancreatitis. She is tachycardic and continues to have pain. Labs show improving hypokalemia, improving LFTs, and hyponatremia. Recommend continued pain control, antiemetics prn, IVFs. # Acute on chronic pancreatitis # Hypokalemia # Hyponatremia # Probable ETOH cirrhosis, compensated # Thrombocytopenia: 2/2 splenomegaly # DEMETRIUS: improved # Leukocytosis: resolved Will follow with you. Please call with questions.
[2019-06-25] MEDS: PHENERGAN IV PRN ×5 (02:03→21:24)
[2019-06-25] MEDS: DEMEROL IV PRN ×5 (02:03→21:24)
[2019-06-25] MEDS: APRESOLINE IV PRN (03:27)
[2019-06-25] MEDS: PROTONIX IV SCH ×2 (03:40→21:25)
[2019-06-25] MEDS: SODIUM CHLORIDE 0.9% INJ PRN ×2 (06:41→21:25)
--- NOTE | 2019-06-25 07:44 | PROGRESS NOTE ---
DATE: 06/25/2019 SUBJECTIVE: Ms Lim was sleeping, resting comfortably, and I came back later where she was easy to arouse. This is about 0715 hours this morning. OBJECTIVE: Vital Signs: She remains afebrile, temperature 99.1 degrees, pulse 94, respirations 19, blood pressure is still running 175-190/104-136. Eyes: Pupils are equal. Neck: No distended neck veins. Lungs: Lungs are clear anterolateral. Cardiovascular exam: Regular rhythm and rate without murmur or S3. Abdomen: Abdomen is soft. Skin: Warm and dry. : Urine output is 4900 mL. ASSESSMENT AND PLAN: 1. Acute on chronic pancreatitis. 2. Hypokalemia and hyponatremia, which is improved. 3. Probable ethanol cirrhosis, compensated. 4. Thrombocytopenia with splenomegaly. 5. Acute kidney injury which is improved. 6. Leukocytosis has resolved. We will go down on her Demerol to q. 5 hours p.r.n. She has oxycodone she can take by mouth, and try and get her ready for discharge. cc: Sreedhar Cardona MD
[2019-06-25] MEDS: CREON PO SCH ×3 (10:32→18:23)
[2019-06-25] MEDS: LR 1,000 ML IV SCH ×2 (10:33→21:24)
[2019-06-25] MEDS: SODIUM CHLORIDE 0.9% INJ SCH ×2 (10:43→16:07)
--- NOTE | 2019-06-25 11:46 | GASTROENTEROLOGY PROGRESS NOTE ---
DATE: 06/25/2019 SUBJECTIVE: Ms. Lim is a 53-year-old female resting in bed. The patient complained of nausea and vomitin along with abdominal pain on the left side. She has denied any bowel movements today, but she said she had one yesterday. OBJECTIVE: Vital Signs: Temperature 98.7, pulse 99, respirations 17, blood pressure 172/103, and oxygen saturation 94%. She is on 2 L nasal cannula. Her weight is 123 pounds. BMI is 16.7 kg/m2. General: She is alert and oriented x3, and in no acute distress. HEENT: Pale conjunctivae. No icterus. PERRL. Neck: Supple. Lungs: Clear to auscultation in the anterior reyes. Cardiovascular: The patient is tachycardic. Abdomen: Soft. Tender on the left side. Active bowel sounds heard in all 4 quadrants. Extremities: No clubbing, no cyanosis, no edema. Pedal pulses 2+ present bilaterally. Neurologic: She is alert and oriented x3. LABORATORY DATA: WBCs 5.33, RBC 3.92, hemoglobin 12.2, hematocrit 36.1, and platelet count is 78,000. Sodium 132, potassium 3.3, chloride 92, carbon dioxide is 27, anion gap 13, BUN 15, creatinine 1.1, glucose 120, calcium 8.4, total bilirubin 1.75, AST 26, ALT 15, alkaline phos 131, and albumin 3.0. IMPRESSION AND PLAN: Acute on chronic pancreatitis Hypokalemia Hyponatremia Alcoholic cirrhosis Thrombocytopenia Splenomegaly Acute kidney injury Leukocytosis Current smoker Abdominal pain likely secondary to chronic pancreatitis and possible constipation. PLAN: Ms. Lim is a 53-year-old female with a history of tobacco abuse and alcohol abuse. GI is following her for acute on chronic pancreatitis. The patient is currently receiving IV fluids lactated Ringer's at 100 mL/h. She is on Creon 6000 units 3 times a day for her pancreatitis. For nausea and vomiting she is receiving Zofran and phenegran. Patient is on GI prophylaxis Protonix 40 mg daily The patient is on a bowel regimen Ania-Colace at bedtime, we have started her on Miralax PO daily. We will continue to monitor the patient, and follow the plan of care per PCP. This plan was discussed with Dr. Aguilar. Please call us for any further questions or concerns. Dictated by ANDRIY Goff for Nii Aguilar MD cc: Nii Aguilar MD I have seen and examined the patient myself and I agree with the above plan of care. I have discussed the above with the patient and family at bedside and all questions were answered. Please call us with any further questions. MTDD
[2019-06-25] MEDS: MIRALAX PO SCH (16:16)
[2019-06-25] MEDS ORDERED: PERICOLACE PO SCH (21:00)
[2019-06-26] MEDS: PROTONIX IV SCH ×2 (02:46→23:47)
[2019-06-26] MEDS: SODIUM CHLORIDE 0.9% INJ PRN (02:54)
[2019-06-26] MEDS: PHENERGAN IV PRN ×5 (02:55→23:54)
[2019-06-26] MEDS: DEMEROL IV PRN ×5 (02:55→23:54)
[2019-06-26] MEDS: LR 1,000 ML IV SCH ×4 (06:28→19:14)
[2019-06-26] MEDS: MIRALAX PO SCH (08:26)
[2019-06-26] MEDS: PERCOCET-5 PO PRN ×2 (08:26→16:26)
[2019-06-26] MEDS: CREON PO SCH ×3 (08:26→16:17)
[2019-06-26] MEDS ORDERED: CHLORASEPTIC SPRAY MT PRN (08:35)
--- NOTE | 2019-06-26 08:50 | PROGRESS NOTE ---
DATE: 06/26/2019 SUBJECTIVE: Ms. Lim is feeling better. She is asking for some soft food. She still has a cough. She feels a little stronger. OBJECTIVE: She remains afebrile, temperature 98.6 degrees, pulse 99, respirations 20, and blood pressure 163/94.HEENT: Pupils are equal and round. Lungs: Clear in all lung reyes. Cardiovascular: Regular rhythm and rate without murmur or S3. Abdomen: Soft. Skin: Warm and dry. Urine output is 4000 mL. ASSESSMENT AND PLAN: She has acute on chronic pancreatitis, currently getting intravenous fluids, and lactated Ringer's at 100 mL an hour. She gets Creon 6000 units 3 times a day for pancreatitis. Going to start her on a soft diet. Her bowel regimen is Ania-Colace at bedtime, and she has been started on MiraLAX. I will give her a little bit of Chloraseptic for her cough. We have decreased her IV pain medicine Demerol to 50 mg IV q.5 hours p.r.n. She has oxycodone 5 mg q.4 hours p.r.n. by mouth. cc: Sreedhar Cardona MD
[2019-06-26] MEDS: APRESOLINE IV PRN (12:59)
--- NOTE | 2019-06-26 13:24 | GASTROENTEROLOGY PROGRESS NOTE ---
DATE: 06/26/2019 SUBJECTIVE: Ms. Lim is a 53-year-old female resting in bed. She was sleeping, and was hesitant to answer any questions, but she did mention that she has been feeling a little better today. She feels nauseated, but has denied any vomiting, and has slight abdominal tenderness on the left side. OBJECTIVE: Vital Signs: Temperature 98.6 degrees, pulse 99, respirations 20, blood pressure 163/94, and oxygen saturation 97% on room air. The patient's weight is 123 pounds. BMI is 16.7 kg/m2. General: She is alert and oriented x3 and in no acute distress. HEENT: Pale conjunctivae. No icterus. PERRL. Neck: Supple. Lungs: Clear to auscultation in the anterior reyes. Cardiovascular: The patient is tachycardic. Abdomen: Soft and tender on the left side. Active bowel sounds heard in all 4 quadrants. Extremities: No clubbing, no cyanosis, no edema. Pedal pulses 2+ present bilaterally. Neurologic: She is alert and oriented x3. LABORATORY DATA: She does not have any new labs. These are from 06/24/2019. WBC is 5.3. RBC 3.92, hemoglobin 12.2, hematocrit 36.1, and platelet count is 78,000. Sodium 132, potassium 3.3, chloride 92, carbon dioxide is 27, anion gap 13, BUN 15, creatinine is 1.1, glucose 120, calcium 8.4, total bilirubin 1.75, AST 26, ALT 15, alkaline phos 131, and albumin is 3.0. IMPRESSION AND PLAN: Acute on chronic pancreatitis Hypokalemia Alcoholic cirrhosis Thrombocytopenia Splenomegaly DEMETRIUS Leukocytosis Abdominal pain secondary to chronic pancreatitis Constipation Current smoker PLAN: Ms. Lim is a 53-year-old female with a history of tobacco abuse and alcohol abuse. GI is following her for acute on chronic pancreatitis. The patient is currently receiving IV fluids, lactated Ringer's at 100 mL/h. She is receiving Creon 6000 units 3 times a day for pancreatitis. For her nausea and vomiting, she is on antiemetics Phenergan and Zofran as needed. The patient is on a bowel regimen MiraLAX 17 g daily. We will d/c her pericolace. The patient has not had a bowel movement today or yesterday. We will continue to monitor the patient, provide supportive care and follow the plan of care per PCP. This plan was discussed with Dr. Whitman. Please call us for any further questions or concerns. Dictated by ANDRIY Goff for Santy Whitman MD Physician Attestation I have seen and examined the patient. I have discussed and reviewed the note by Sandra ASHRAF and agree with findings and plan as documented. MTDD
[2019-06-26] MEDS ORDERED: HALL'S COUGH LOZENGE MT PRN (16:33)
[2019-06-26] MEDS: SODIUM CHLORIDE 0.9% INJ SCH (23:47)
[2019-06-27] MEDS: LR 1,000 ML IV SCH ×3 (05:11→23:49)
[2019-06-27] MEDS: DEMEROL IV PRN ×4 (05:11→22:32)
[2019-06-27] MEDS: PHENERGAN IV PRN ×4 (05:11→22:32)
[2019-06-27] MEDS: MIRALAX PO SCH (08:19)
[2019-06-27] MEDS: PERCOCET-5 PO PRN ×2 (08:23→20:20)
[2019-06-27] MEDS: CREON PO SCH ×3 (08:23→16:42)
[2019-06-27] MEDS: ZOFRAN IV PRN (08:25)
--- NOTE | 2019-06-27 10:25 | PROGRESS NOTE ---
DATE: 06/27/2019 SUBJECTIVE: Ms. Lim says she does not feel as good today. She did get some sleep last night. OBJECTIVE: Vital signs: Remains afebrile, temperature 99.3 degrees, pulse 78, respirations 20, blood pressure 159/70. HEENT: Pupils are equal and round. Lungs: Clear in all lung reyes. Cardiovascular: Regular rhythm and rate without murmur or S3. Abdomen: Soft. She has some tenderness in the left upper quadrant. Extremities: No pedal edema. Urine output was 7600 mL. ASSESSMENT AND PLAN: Acute on chronic pancreatitis. She is receiving Creon 6000 units 3 times a day and still getting lactated Ringer's. She is making progress and she is eating. We have her on bowel regimen of MiraLAX 17 g daily and Ania-Colace. We will continue present treatment. I am not going to decrease her pain medicines today. Electrolytes and liver functions look good. cc: Sreedhar Cardona MD
[2019-06-27] MEDS: PROTONIX IV SCH (22:32)
[2019-06-27] MEDS: SODIUM CHLORIDE 0.9% INJ SCH (22:32)
[2019-06-28] MEDS: LR 1,000 ML IV SCH ×3 (03:32→21:49)
[2019-06-28] MEDS: DEMEROL IV PRN ×5 (03:32→23:55)
[2019-06-28] MEDS: PHENERGAN IV PRN ×5 (03:33→23:56)
[2019-06-28] MEDS: CREON PO SCH ×3 (08:35→16:26)
[2019-06-28] MEDS: MIRALAX PO SCH (08:35)
--- NOTE | 2019-06-28 08:45 | PROGRESS NOTE ---
DATE: 06/28/2019 SUBJECTIVE: Ms. Lim was sleeping, resting comfortably. She was easy to arouse. She says that she wants to keep the pain medicine where it is. We are giving Dilaudid every 5 hours. She also was concerned. She is supposed to have a court date in [place], and needs a letter sent by me stating that she is in the hospital and will not make her court hearing, so she does not have a warrant for her arrest, so I will compose a letter reporting that she is in the hospital. OBJECTIVE: Vital Signs: Temp 98.3, pulse 80, respirations 16, blood pressure 187/96. HEENT: Pupils are equal and round. Lungs: Clear in all lung reyes. Cardiovascular: Regular rhythm and rate without murmur or S3. Abdomen: Soft. Skin: Warm and dry. Urine output is 5900 mL. ASSESSMENT AND PLAN: Acute on chronic pancreatitis. She is getting Creon 6000 mL 3 times a day, and is still on lactated Ringer's. Continue her current analgesia. cc: Sreedhar Cardona MD
[2019-06-28] MEDS: PERCOCET-5 PO PRN ×3 (11:13→20:48)
[2019-06-28] MEDS: ZOFRAN IV PRN ×2 (16:26→20:52)
[2019-06-28] MEDS: APRESOLINE IV PRN (20:49)
[2019-06-28] MEDS: PROTONIX IV SCH (23:56)
[2019-06-28] MEDS: SODIUM CHLORIDE 0.9% INJ SCH (23:56)
[2019-06-29] MEDS: PERCOCET-5 PO PRN ×4 (02:40→22:51)
[2019-06-29] MEDS: ZOFRAN IV PRN ×4 (02:40→22:54)
[2019-06-29] MEDS: DEMEROL IV PRN ×4 (05:41→21:05)
[2019-06-29] MEDS: PHENERGAN IV PRN ×4 (05:41→21:15)
[2019-06-29] MEDS: LR 1,000 ML IV SCH ×3 (07:35→18:24)
[2019-06-29] MEDS: MIRALAX PO SCH (09:32)
[2019-06-29] MEDS: CREON PO SCH ×2 (09:32→18:23)
--- NOTE | 2019-06-29 10:22 | PROGRESS NOTE ---
DATE: 06/29/2019 SUBJECTIVE: She says she feels they are going backwards, and she is having more pain in the left upper quadrant. We will decrease her diet back down to full liquids. She remains afebrile. OBJECTIVE: Vital Signs: Temperature 98.3 degrees, pulse 85, respirations 16, blood pressure 160/90. Eyes: Pupils were equal. Conjunctivae pink. Neck: No distended neck veins. Lungs: Lungs are clear in all lung reyes. Cardiovascular exam: Regular rhythm and rate without murmur or S3. Abdomen: Mild tenderness, left upper quadrant. Extremities: No pedal edema. ASSESSMENT AND PLAN: Acute on chronic pancreatitis. She is on Creon 6000 mL three times a day. Still on lactated Ringer fluids. Continue her present pain medicine. We will decrease her diet back down to full liquid diet. We will check electrolytes and amylase and lipase. cc: Sreedhar Cardona MD
[2019-06-29] MEDS: SODIUM CHLORIDE 0.9% INJ PRN ×2 (10:52→16:14)
[2019-06-29 11:49] LABS: AGAP 12; ALB/GLOB RATIO 1.3; ALKALINE PHOSPHATASE 135 U/L (32-104); BUN 6 mg/dL (8-22); CALCIUM 7.4 mg/dL (8.8-10.2); CHLORIDE 92 mmol/L (98-107); COSMO 267; CREATININE 0.9 mg/dL (0.5-0.9); ESTIMATED GFR > 60; GLUCOSE 120 mg/dL (70-104); GOT 25 U/L (10-30); GPT 12 U/L (10-36); LIPASE 11 U/L (13-60); SODIUM 134 mmol/L (136-145); TCO2 30 mmol/L (25-35); TOTAL BILIRUBIN 1.47 mg/dL (0.20-1.00); TOTAL PROTEIN 5.3 g/dL (6.3-8.3)
--- NOTE | 2019-06-29 12:26 | GASTROENTEROLOGY PROGRESS NOTE ---
DATE: 06/29/2019 SUBJECTIVE: Ms. Lim is a 53-year-old female resting in bed. The patient has been complaining of nausea and vomiting and not being able to tolerated any food along with left-sided abdominal tenderness. OBJECTIVE: Vital Signs: Temperature 98.1 degrees, pulse is 93, respirations 16, blood pressure 172/83, oxygen saturation 95% on room air. Her weight is 123 pounds. BMI 16.7 kg/m2. General: She is alert, oriented x3, and in no acute distress. HEENT: Pale conjunctivae. No icterus. PERRL. Neck: Supple. Lungs: Clear to auscultation in the anterior reyes. Cardiovascular: Patient is tachycardic. Abdomen: Soft, tender on the left side. Active bowel sounds heard in all 4 quadrants. Extremities: No clubbing, no cyanosis, no edema. Pedal pulses 2+ present bilaterally. Neurologic: She is alert, oriented x3. LABORATORY: The patient has no new hematology but chemistries are from 06/29. Sodium is 134, chloride 92, carbon dioxide 30, anion gap 12, BUN 6, creatinine is 0.9 glucose 120, calcium 7.4. Total bilirubin is 1.47, AST is 25, ALT is 12, alkaline phosphatase is 135, albumin is 3.0, amylase is 25, lipase is 11. IMPRESSION AND PLAN: Chronic pancreatitis Alcoholic Cirrhosis Splenomegaly Abdominal pain secondary to chronic pancreatitis Current smoker Nausea and Vomiting PLAN: Ms. Lim is a 53-year-old female with a history of tobacco abuse and alcohol abuse. GI is following her for acute on chronic pancreatitis. The patient is still complaining of nausea and vomiting. We plan to do an EGD tomorrow to find out the cause of her nausea and vomiting. The patient is currently receiving IV fluids lactated Ringer's at 100 mL/h. She is on GI prophylaxis, Protonix IV daily. For her nausea and vomiting, she is on Zofran and Phenergan. The patient is on a bowel regimen 17 grams p.o. daily and she is receiving Creon 80746 units 3 times a day for her pancreatitis. Discussed the risks, benefits, and alternatives of the procedure to the patient. The patient acknowledges understanding of the plan of care. Further plan of care will be based on the EGD findings. This plan was discussed with Dr. Aguilar. Please call us for any further questions or concerns. Dictated by ANDRIY Goff for Nii Aguilar MD cc: Nii Aguilar MD I have seen and examined the patient myself and I agree with the above plan of care. I have discussed the above with the patient and all questions were answered. Please call us with any further questions. MTDTyler
[2019-06-29] MEDS ORDERED: CREON PO SCH ×2 (13:00→17:00)
[2019-06-29 13:02] LABS: POTASSIUM 2.4 mmol/L (3.5-5.1)
[2019-06-29] MEDS ORDERED: KLOR-CON PO ONE ×2 (13:05→17:05)
[2019-06-30] MEDS: PROTONIX IV SCH (01:55)
[2019-06-30] MEDS: PHENERGAN IV PRN ×4 (01:55→21:54)
[2019-06-30] MEDS: DEMEROL IV PRN ×4 (01:55→21:53)
[2019-06-30] MEDS: PERCOCET-5 PO PRN ×4 (05:06→22:59)
[2019-06-30] MEDS: ZOFRAN IV PRN ×3 (05:06→18:50)
[2019-06-30 07:08] LABS: AGAP 12; BUN 7 mg/dL (8-22); CALCIUM 7.8 mg/dL (8.8-10.2); CHLORIDE 93 mmol/L (98-107); COSMO 265; CREATININE 0.9 mg/dL (0.5-0.9); ESTIMATED GFR > 60; GLUCOSE 119 mg/dL (70-104); POTASSIUM 2.9 mmol/L (3.5-5.1); SODIUM 133 mmol/L (136-145); TCO2 28 mmol/L (25-35)
--- NOTE | 2019-06-30 08:54 | PROGRESS NOTE ---
DATE: 06/30/2019 SUBJECTIVE: They are going to plan on doing an EGD this morning. She is hurting more. We are back to full liquids. She remains afebrile. OBJECTIVE: Temperature 98.0 degrees, pulse 85, respirations 20, blood pressure 183/95. Pupils are equal and round. Lungs are clear in all lung reyes. Cardiovascular Examination: Regular rhythm and rate without murmur or S3. Abdomen is soft. Skin is warm and dry. ASSESSMENT AND PLAN: 1. Acute on chronic pancreatitis. She is on Creon 6000 mL 3 times a day. We had to go back to full liquids. Plan is to do an esophagogastroduodenoscopy this morning. 2. She has a history of tobacco use and alcohol use. 3. The patient is still complaining of nausea and vomiting. See if we can find another cause for the nausea and vomiting. Suspect she may have some gastritis. She is on a bowel regimen of MiraLAX 17 g daily and she is on pain medicine using Demerol every 5 hours as needed. Her hematocrit is 36, hemoglobin 12. Chemistries this morning, sodium 133, potassium 2.9, chloride 93, BUN 7, creatinine 0.9. I am going to give her some potassium today. She is getting potassium by mouth so we will put her on potassium by mouth daily as well. I will give her 40 mEq intravenous and then 40 mEq of potassium by mouth daily as well. cc: Sreedhar Cardona MD
[2019-06-30] MEDS ORDERED: DIPRIVAN 1% ONE ×2 (09:01→09:15)
[2019-06-30] MEDS ORDERED: XYLOCAINE-MPF 2% ONE (09:01)
--- NOTE | 2019-06-30 09:32 | ENDOSCOPY OPERATIVE NOTE ---
[facility] ENDOSCOPY OPERATIVE NOTE , EGD PROCEDURE REPORT EXAM DATE: 06/30/2019 PATIENT NAME: Stacy Lim MR#: [id number] BIRTHDATE: 1965 ATTENDING: Santy Whitman MD STATUS: inpatient SENIOR GOVERNMENT PROGRAM ANALYST: INDICATIONS: The patient is a 53 yr old female here for an EGD due to nausea, vomiting, epigastric a bdominal pain, and history of alcoholic cirrhosis and chronic pancreatitis. PROCEDURE PERFORMED: EGD w/ biopsy MEDICATIONS: Per Anesthesia ESTIMATED BLOOD LOSS: None CONSENT: The patient understands the risks and benefits of the procedure and understands that these r isks include, but are not limited to: sedation, allergic reaction, infection, perforation and/or bleeding. Alternative means of evaluation and treatment include, among others: physical exam, x-rays, and/or surgical intervention. The patient elects to proceed with this endoscopic procedure. DESCRIPTION OF PROCEDURE: During pre-op preparation period all mechanical and medical equipment was c hecked for proper function. Hand hygiene and appropriate measures for infection prevention was taken. After the risks, benefits and alternatives of the procedure were thoroughly explained, Informed consent was verified, confirmed and timeout was successfully executed by the treatment team. The patient was anesthetized with topical anesthesia and the [id number]-[id number] ([id number]) endoscope was introduced through the mouth and advanced to the second portion of the duoden um. Retroflexion was performed in the stomach and revealed varices without bleeding.. The gastroscope was then slowly withdrawn and removed. The patient's toleration of the procedure was excellent. ESOPHAGUS: Reflux esophagitis was found in the distal esophagus. Esophagitis was LA Class B: One or more mucosal breaks > 5mm, but without continuity across mucosal folds. The z-line was noted at 40cm from the incisors. The z-line appeared irregular. No esophageal varices. STOMACH: Mild gastritis (inflammation) was found in the gastric antrum. A biopsy was performed using cold forceps. Sample sent for histology. There were small non bleeding gastric (IGV1) varices in the gastric fund us. DUODENUM: Severe duodenal inflammation was found in the duodenal bulb. The duodenal mucosa showed n o abnormalities in the 2nd part of the duodenum. ADVERSE EVENTS: There were no complications. IMPRESSIONS: ESOPHAGUS: Reflux esophagitis was found in the distal esophagus. Esophagitis was LA Class B: One or more mucosal breaks > 5mm, but without continuity across mucosal folds. The z-line was noted at 40cm from the incisors. The z-line appeared irregular. No esophageal varices. STOMACH: Mild gastritis (inflammation) was found in the gastric antrum. There was scant hematin in st omach. A biopsy was performed using cold forceps. Sample sent for histology to rule out H pylori. There were small non bleeding gastric (IGV1) varices in the gastric fundus. DUODENUM: Severe duodenal inflammation was found in the duodenal bulb likely related to pancreatitis. The duodenal mucosa showed no abnormalities in the 2nd part of the duodenum. RECOMMENDATIONS: 1. Await biopsy results 2. Start pantoprazole 40mg PO BID and continue for 2-3 months 3. Start nadolol 10mg PO daily, titrate for HR goal 60-65 4. Avoid NSAIDs and aspirin 5. Advance diet as tolerated REPEAT EXAM: Santy Whitman MD eSigned: Santy Whitman MD 06/30/2019 9:31 AM CC: CPT CODES: 20781 Upper gastrointestinal endoscopy including esophagus, stomach, and either the du odenum and/or jejunum as appropriate; with biopsy, single or multiple ICD CODES: 789.06 Abdominal pain,epigastric 787.03 Vomiting,unspecified 787.02 Nausea The ICD and CPT codes recommended by this software are interpretations from the data that the [facility] staff has captured with the software. The verification of the translation of this report to the ICD and CPT co randee and modifiers is the sole responsibility of the health care institution and practicing physician where this report was generated. [employer] will not be held responsible for the validity of the ICD and CPT codes i ncluded on this report. [employer] assumes no liability for data contained or not contained herein. CPT is a registered tra [employer]ark of the [employer]. PATIENT NAME: Stacy Lim MR#: [id number]
[2019-06-30] MEDS: SODIUM CHLORIDE 0.9% INJ PRN ×2 (10:36→15:48)
[2019-06-30] MEDS: CREON PO SCH ×3 (12:19→16:40)
[2019-06-30] MEDS: LR 1,000 ML IV SCH ×4 (12:19→19:38)
[2019-06-30] MEDS: MIRALAX PO SCH (12:20)
[2019-06-30] MEDS: CORGARD PO SCH (12:29)
[2019-06-30] MEDS: PROTONIX PO SCH ×2 (12:29→21:54)
[2019-06-30] MEDS: KLOR-CON PO SCH (12:29)
[2019-06-30] MEDS: POTASSIUM CHLORIDE 20 MEQ/SWI 20 MEQ/100 ML IVPB IV SCH ×2 (12:30→16:41)
[2019-07-01] MEDS: LR 1,000 ML IV SCH ×2 (02:32→13:21)
[2019-07-01] MEDS: ZOFRAN IV PRN ×4 (03:06→21:03)
[2019-07-01] MEDS: DEMEROL IV PRN ×4 (03:07→18:58)
[2019-07-01] MEDS: APRESOLINE IV PRN (04:09)
[2019-07-01] MEDS: PERCOCET-5 PO PRN ×4 (05:58→21:03)
[2019-07-01] MEDS: SODIUM CHLORIDE 0.9% INJ PRN ×4 (06:18→18:58)
[2019-07-01] MEDS: PHENERGAN IV PRN ×4 (06:30→18:58)
[2019-07-01 06:51] LABS: BASO# 0.03 X1000 (0.0-0.2); BASO% 0.3 % (0.0-0.8); EOS# 0.11 X1000 (0.0-0.7); EOS% 1.2 % (0.0-10.0); HEMATOCRIT 34.2 % (37.0-47.0); HEMOGLOBIN 11.7 g/dL (12.0-16.0); IMM GRAN# 0.05 X1000 (0.0-0.04); IMM GRAN% 0.5 % (0.0-0.5); LYMPH# 3.19 X1000 (1.2-3.4); LYMPH% 34.9 % (20.5-51.1); MCHC 34.2 g/dL (33-37); MCV 90.5 FL (81-99); MONO# 0.44 X1000 (0.11-0.59); MONO% 4.8 % (1.7-9.3); NEUT# 5.31 X1000 (1.4-6.5); NEUT% 58.3 % (42.2-75.2); PLT 178 X1000 (130-400); RBC 3.78 XMIL (4.2-5.4); RDW 12.4 % (11.5-14.5); WBC 9.13 X1000 (4.8-10.8)
[2019-07-01 07:09] LABS: AGAP 12; ALB/GLOB RATIO 1.3; ALBUMIN 3.4 g/dL (3.5-5.0); ALKALINE PHOSPHATASE 169 U/L (32-104); BUN 6 mg/dL (8-22); CALCIUM 8.4 mg/dL (8.8-10.2); CHLORIDE 95 mmol/L (98-107); COSMO 266; CREATININE 0.9 mg/dL (0.5-0.9); ESTIMATED GFR > 60; GLUCOSE 106 mg/dL (70-104); GOT 25 U/L (10-30); GPT 12 U/L (10-36); MAGNESIUM 1.3 mg/dL (1.5-2.7); POTASSIUM 3.5 mmol/L (3.5-5.1); SODIUM 134 mmol/L (136-145); TCO2 27 mmol/L (25-35); TOTAL BILIRUBIN 1.36 mg/dL (0.20-1.00); TOTAL PROTEIN 6.1 g/dL (6.3-8.3)
[2019-07-01] MEDS: CORGARD PO SCH (09:57)
[2019-07-01] MEDS: MIRALAX PO SCH (09:57)
[2019-07-01] MEDS: PROTONIX PO SCH ×2 (09:57→19:59)
[2019-07-01] MEDS: CREON PO SCH ×3 (09:57→16:34)
[2019-07-01] MEDS: KLOR-CON PO SCH (09:57)
--- NOTE | 2019-07-01 14:15 | GASTROENTEROLOGY PROGRESS NOTE ---
DATE: 07/01/2019 SUBJECTIVE: Ms. Lim is a 53-year-old female resting in bed. The patient is complaining of nausea, vomiting and abdominal tenderness on the left side. OBJECTIVE: Vital Signs: Temperature 98.4 degrees, pulse is 95, respirations 20, blood pressure 159/95, oxygen saturation 100% on room air. The patient's weight is 123 pounds. BMI is 16.7 kg/m2. General: She is alert, oriented x3, and in no acute distress. HEENT: Pale conjunctivae. No icterus. PERRL. Neck: Supple. Lungs: Clear to auscultation. Cardiovascular: The patient is tachycardic. Abdomen: Soft. Tender in the left quadrant. Active bowel sounds heard in all 4 quadrants. Extremities: No clubbing, no cyanosis, no edema. Pedal pulses 2+ present bilaterally. Neurologic: She is alert, oriented x3. LABORATORY DATA: WBCs are 9.13, RBCs 3.78, hemoglobin is 11.7, hematocrit is 34.2, platelet count is 178. Sodium 134, potassium 3.5, chloride 95, carbon dioxide is 27, anion gap 12. BUN 6, creatinine is 0.9 glucose 106, calcium 8.4, magnesium 1.3, total bilirubin is 1.36. AST is 25, ALT is 12, alkaline phosphatase is 169, albumin is 3.4. IMPRESSION AND PLAN: 1. Chronic pancreatitis. 2. Alcoholic cirrhosis. 3. Splenomegaly. 4. Abdominal pain secondary to chronic pancreatitis. 5. Current smoker. 6. Nausea and vomiting. PLAN: Ms. Lim is a 53-year-old female with a history of tobacco abuse and alcohol abuse. GI has been following her for her chronic pancreatitis. The patient is still complaining of nausea and vomiting. We did an EGD yesterday and she had reflex esophagitis LA class B in the distal esophagus. Mild gastritis in the gastric antrum. There was scant hematin in the stomach. Biopsy was done. Severe duodenal inflammation was found in the duodenal bulb, likely related to pancreatitis. Awaiting the results of the biopsy. The patient is currently receiving IV fluids, lactated Ringer's at 100 mL/hour. She is on Protonix 40 mg p.o. twice a day. The patient is also receiving Creon 12,000 units p.o. three times a day for her pancreatitis. For her nausea and vomiting, she is on Zofran and Phenergan as needed. We will continue to monitor the patient, and follow the plan of care per PCP. This plan was discussed with Dr. Whitman. Please call us for any further questions or concerns. Dictated by ANDRIY Goff for Santy Whitman MD Physician Attestation I have seen and examined the patient. I have discussed and reviewed the note by Sandra ASHRAF and agree with findings and plan as documented. There is some concern for secondary gain here as she is usually resting comfortably in bed and only complains of pain on interview. Her abdomen is soft. She voluntarily guards. Recommend weaning pain medications. Continue antiemetics, PPI BID, and pancreatic enzymes. MTDD
--- NOTE | 2019-07-01 16:17 | PROGRESS NOTE ---
DATE: 07/01/2019 SUBJECTIVE: Ms. Lim did not have a good night. She does not feel good, a lot of discomfort. She does ask if she can try a soft diet again and so I will advance her diet. OBJECTIVE: Vital Signs: Temperature 98.4 degrees, pulse 95, respirations 20, blood pressure 159/95. Eyes: Pupils are equal and round. Lungs: Lungs are clear in all lung reyes. Cardiovascular: Regular rhythm and rate without murmur or S3. ASSESSMENT AND PLAN: 1. Chronic pancreatitis. 2. Alcoholic cirrhosis. 3. Splenomegaly. 4. Abdominal pain secondary to chronic pancreatitis. 5. Current smoker, getting nicotine patch. 6. Nausea and vomiting. She has a history of tobacco use and alcohol abuse. Gastroenterology is following her for chronic pancreatitis. Still complaining of nausea and vomiting. Esophagogastroduodenoscopy was done and it shows reflux esophagitis in the distal esophagus; esophagitis LA class B, mild gastritis found in the gastric antrum. There were scant hematin in the stomach and biopsy was done. Severe duodenal inflammation was found in the duodenal bulb, likely related to pancreatitis. Await the results of the biopsy. Continue intravenous fluids and she is getting Creon. We increased it to 12,000 units three times a day and for nausea, getting Zofran and Phenergan. She wants to try and advance to a soft diet. We will try and do that. cc: Sreedhar Cardona MD
[2019-07-02] MEDS: LR 1,000 ML IV SCH ×3 (00:03→20:35)
[2019-07-02] MEDS: PHENERGAN IV PRN ×5 (00:03→23:08)
[2019-07-02] MEDS: DEMEROL IV PRN ×5 (00:03→23:07)
[2019-07-02] MEDS: PERCOCET-5 PO PRN ×4 (02:12→21:00)
[2019-07-02] MEDS: ZOFRAN IV PRN ×4 (02:12→21:00)
[2019-07-02] MEDS: CREON PO SCH ×4 (08:07→16:30)
[2019-07-02] MEDS: KLOR-CON PO SCH (08:07)
[2019-07-02] MEDS: CORGARD PO SCH (08:07)
[2019-07-02] MEDS: MIRALAX PO SCH (08:07)
[2019-07-02] MEDS: PROTONIX PO SCH ×2 (08:07→20:35)
[2019-07-02] MEDS ORDERED: MAGNESIUM SULFATE 2 GM/S.W.I. 2 GM/50 ML IVPB IV ONE (08:50)
--- NOTE | 2019-07-02 09:10 | PROGRESS NOTE ---
DATE: 07/02/2019 SUBJECTIVE: Ms Nina said she did not sleep a whole lot last night. She does not like the food. She would like something besides bland food. She only took a couple bites by her report. OBJECTIVE: Vital Signs: Temperature 98 degrees, pulse 80, respirations 16, blood pressure 156/97. HEENT: Pupils are equal and round. Lungs: Clear in all lung reyes. Cardiovascular: Regular rate without murmur or S3. Abdomen: Soft. Skin is warm and dry. ASSESSMENT AND PLAN: 1. Chronic pancreatitis. 2. Alcoholic cirrhosis. 3. Splenomegaly. 4. Abdominal pain secondary to chronic pancreatitis. She is on pancreatic enzymes. We will change her to a regular diet. 5. Current smoker. Getting a nicotine patch. 6. She has some reflux esophagitis and distal esophagitis and some gastritis in the gastric antrum. Continue proton pump inhibitor. PLAN: Hopefully, she will be ready to go home soon. She is getting the lipase protease and amylase 62191 units p.o. t.i.d. Is getting lactated Ringer's at 100 mL an hour, Corgard 10 mg a day, Protonix 40 mg p.o. b.i.d., polyethylene glycol 17 g p.o. daily, potassium chloride 40 mEq daily. LABS: Her potassium is 3.5, sodium 134, potassium 95, BUN 6, creatinine 0.9. Magnesium is 1.3. We will give her some magnesium IV, put her on some p.o. magnesium as well. cc: Sreedhar Cardona MD
--- NOTE | 2019-07-02 11:27 | GASTROENTEROLOGY PROGRESS NOTE ---
DATE: 07/02/2019 SUBJECTIVE: Ms. Lim is a 53-year-old female resting in bed. The patient complained of not being able to sleep all night, and does not like the food that she receives at the hospital, c/o of being too bland. OBJECTIVE: Vital Signs: Temperature 98 degrees, pulse 80, respirations 16, blood pressure 156/97, oxygen saturation 95%. She is on room air. The patient's weight is 123 pounds, BMI is 16.7 kg/m2. General: She is alert, oriented x3, and in no acute distress. HEENT: Pale conjunctivae. No icterus. PERRL. Neck: Supple. Lungs: Clear to auscultation. Cardiovascular: Regular rate and rhythm. Abdomen: Soft, tender in the left quadrant. Active bowel sounds heard in all 4 quadrants. Extremities: No clubbing, no cyanosis, no edema. Pedal pulses 2+ present bilaterally. Neurologic: She is alert, oriented x3. LABORATORY DATA: WBCs are 9.13, RBCs 3.78, hemoglobin 11.7, hematocrit is 34.2, platelet count is 178,000. Sodium 134, potassium 3.5, chloride 95, carbon dioxide is 27, anion gap 12, BUN 6, creatinine is 0.9, glucose 106, calcium 8.4, magnesium is 1.3. Total bilirubin 1.36, AST 25, ALT 12, alkaline phosphatase is 169. IMPRESSION AND PLAN: 1. Chronic pancreatitis. 2. Alcoholic cirrhosis. 3. Splenomegaly. 4. Abdominal pain secondary to chronic pancreatitis. 5. Current smoker. 6. Nausea and vomiting. 7. Anemia PLAN: Ms. Lim is a 53-year-old female with a history of tobacco abuse, alcohol abuse, and chronic pancreatitis. GI is following her for her chronic pancreatitis. The patient is complaining of nausea, vomiting, and abdominal tenderness. An EGD was done on 06/30/2019, and findings were reflux esophagitis LA class B in the distal esophagus, mild gastritis in the gastric antrum, and a scant hematin in the stomach. Biopsies were done. She had severe duodenal inflammation in the duodenal bulb, which may be likely related to the pancreatitis. Her stomach biopsy revealed chronic inactive gastritis, and she was negative for H-pylori. The patient is currently receiving IV fluid, lactated Ringer's at 100 mL/hour. For her nausea and vomiting, she is on antiemetics, Zofran and Phenergan as needed. The patient is receiving Creon 12,000 units 3 times a day for her pancreatitis, and she is on GI prophylaxis, Protonix 40 mg p.o. twice a day. The patient's magnesium was 1.3. She is receiving IV magnesium at 50 mL/hour and also magnesium oxide 800 mg p.o. twice a day per PCP. We will continue to monitor the patient, provide supportive care and follow the plan of care per PCP. This plan was discussed with Dr. Aguilar. Please call us for any further questions or concerns. Dictated by ANDRIY Goff for Nii Aguilar MD cc: Nii Aguilar MD I have seen and examined the patient myself and I agree with the above plan of care. Please call us with any further questions. MTDD
[2019-07-02] MEDS: MAG-OX PO SCH ×2 (11:55→20:36)
[2019-07-03] MEDS: ZOFRAN IV PRN ×2 (02:02→08:24)
[2019-07-03] MEDS: PERCOCET-5 PO PRN ×2 (02:02→08:24)
[2019-07-03] MEDS: LR 1,000 ML IV SCH (05:52)
[2019-07-03] MEDS: DEMEROL IV PRN (05:52)
[2019-07-03] MEDS: PHENERGAN IV PRN (05:52)
[2019-07-03 07:26] LABS: CALCIUM 8.4 mg/dL (8.8-10.2); MAGNESIUM 1.7 mg/dL (1.5-2.7); POTASSIUM 3.7 mmol/L (3.5-5.1)
[2019-07-03 08:03] VITALS: BP 170/91
[2019-07-03] MEDS: MAG-OX PO SCH (08:28)
[2019-07-03] MEDS: KLOR-CON PO SCH (08:29)
[2019-07-03] MEDS: CORGARD PO SCH (08:29)
[2019-07-03] MEDS: PROTONIX PO SCH (08:30)
[2019-07-03] MEDS: MIRALAX PO SCH (08:31)
[2019-07-03] MEDS: CREON PO SCH (08:33)
[2019-07-03] MEDS ORDERED: TORADOL IV PRN (08:41)
--- NOTE | 2019-07-03 11:42 | GASTROENTEROLOGY PROGRESS NOTE ---
DATE: 07/03/2019 SUBJECTIVE: Ms. Lim is a 53-year-old female. She was sitting at the side of the bed getting ready to go home. The patient was angry, frustrated and was not willing to talk. OBJECTIVE: Vital Signs: Temperature 98.1 degrees, pulse is 83, respirations 18, blood pressure 170/91, oxygen saturation 97% on room air. The patient's weight is 123 pounds. BMI 16.7 kg/m2. General: She is alert, oriented x3, frustrated and is angry. HEENT: Pale conjunctivae. No icterus. PERRL. Neck: Supple. Lungs: Clear to auscultation. Cardiovascular: Regular rate and rhythm. Abdomen: Soft, nontender. Active bowel sounds heard in all 4 quadrants. Extremities: No clubbing, no cyanosis, no edema. Pedal pulses 2+ present bilaterally. Neurological: Alert and oriented x3. LABORATORY DATA: The patient's chemistries are sodium 131, potassium 3.7, chloride 95, carbon dioxide 24, anion gap 12, BUN 7, creatinine 1.0, glucose 117, calcium 8.4, magnesium 1.7. The patient does not have any new hematology. IMPRESSION AND PLAN: 1. Chronic pancreatitis. 2. Alcoholic cirrhosis. 3. Splenomegaly. 4. Abdominal pain secondary to chronic pancreatitis. 5. Current smoker. 6. Nausea and vomiting. PLAN: Ms. Lim is a 53-year-old female with a history of tobacco abuse and alcohol abuse. Gastroenterology has been following her for chronic pancreatitis. The patient has been complaining about nausea, vomiting, and abdominal pain. She was angry and frustrated on being discharged today. We will continue to monitor the patient and follow her up as an outpatient in 2 to 4 weeks. This plan was discussed with Dr. Whitman. Please call us for any further questions or concerns. Dictated by ANDRIY Goff for Santy Whitman MD [facility]
--- NOTE | 2019-07-03 20:55 | DISCHARGE SUMMARY ---
ADMISSION DATE: 06/20/2019 DISCHARGE DATE: 07/03/2019 CONSULTS: Santy Whitman MD, of GI. DISCHARGE DIAGNOSES: 1. Acute on chronic pancreatitis. 2. Alcohol abuse. 3. Tobacco abuse. 4. Gastritis. 5. Esophagitis. 6. Chronic pain. HOSPITAL COURSE: The patient presented initially with complaints of nausea, vomiting and abdominal pain. Initial workup showed normal lipase, but CT was suggestive of acute on chronic pancreatitis as well as severe hepatic steatosis/cirrhosis, which was worsened from previous. No other acute pathology was identified. The patient was treated with fluids, antiemetics and pain control. Her nausea and vomiting resolved fairly rapidly, but pain continued to be an issue. The patient stated that only IV Demerol was effective for her pain control. The patient did end up having endoscopy which showed some reflux esophagitis and mild gastritis, but no ulcers or other major pathology. She had some small nonbleeding varices in the stomach, but no esophageal varices were noted. The patient was placed on PPI, which was continued. On the day of discharge, patient was eating and drinking without difficulty, had continued complaints of some pain, but on exam patient was completely nontender to palpation by stethoscope, however, she was moderately tender with significant voluntary guarding to palpation by hand. During discussion patient sat up rapidly spontaneously and without difficulty or discomfort. Given patient's lack of nausea, vomiting, benign exam, and ability to move easily without apparent discomfort, it was thought that whatever pain she has left at this point is due to her chronic pancreatitis and is unlikely to benefit from further hospitalization. She will be discharged with continued PPI, her pancreatic enzymes to take with meals, and a small amount of oral pain medication. She is advised that if her pain persists she could talk to her PCP about getting in with Pain Management versus going down to [facility] to talk to one of the surgeons down there to consider a Whipple for pain control of chronic pancreatitis. However, we did discuss with the patient that would be a fairly radical procedure with many potential complications, both short and long-term. DISCHARGE VITALS: Temperature 98.1 degrees, pulse 83, respirations 18, blood pressure 170/91, O2 saturation 97% on room air. DISCHARGE DIET: Low fat. DISCHARGE MEDICATIONS: Nadolol 10 mg p.o. daily, MiraLAX daily, Pancreaze 4,200 units 2 caps t.i.d. with meals, Percocet 5 every 4 hours p.r.n., Phenergan 25 mg p.o. every 6 hours, Protonix 40 mg p.o. b.i.d., Zofran ODT 4 mg p.o. every 6 hours as needed. FOLLOWUP AND PLAN: The patient discharging home on pancreatic enzymes, oral nausea medication, and a handful of pain medication. The patient encouraged to continue with PPI therapy given mild esophagitis and gastritis. The patient to follow up with PCP and GI. Patient strongly counseled to avoid alcohol and tobacco. Greater than 30 minutes spent counseling patient and arranging discharge. [facility]
== END 2019-07-03 11:32 | disposition home or self-care (01) | DRG 439 ==
LOC: P.ED 11:37 → SUATTDRO 18:12 → 4N 18:12
PROVIDERS: ATTEND Internal Medicine